=== PATIENT | male | born 1930 | race Caucasian/White ===

== ENCOUNTER 2016-07-01 13:55 | Emergency (ER) | payer MEDICARE, BC ==
[~2016-07-01] VITALS: Ht 172.7 cm; Wt 68.0 kg
[~2016-07-01 13:55] MED LIST: ACET325S8 PO; AMIO200 PO; ASPI81TA82 PO; ATOR10TA PO; CARV12.5 PO; PROT40TA PO; SUCR1TAB PO; SUPETAB30 PO; TEMA7.5 PO
[2016-07-01 14:09] VITALS: BP 150/74; PULSE 65; RESP 16; TEMP 97.2; O2SAT 99
[2016-07-01] MEDS ORDERED: CARV12.52 PO (14:21)
[2016-07-01] MEDS ORDERED: FURO1TAB60 PO (14:21)
[2016-07-01] MEDS ORDERED: ALLO100T PO (14:21)
[2016-07-01] MEDS ORDERED: PANT40TA3 PO (14:21)
[2016-07-01] MEDS ORDERED: CARA1TAB6 PO (14:21)
[2016-07-01] MEDS ORDERED: CALC0.25 PO (14:21)
[2016-07-01] MEDS ORDERED: AMLO10TA2 PO (14:21)
[2016-07-01] MEDS ORDERED: RENATAB6 PO (14:21)
[2016-07-01] MEDS ORDERED: ATOR10TA15 PO (14:21)
[2016-07-01] MEDS ORDERED: ASPI1TAB69 PO (14:21)
[2016-07-01 14:22] VITALS: BP 148/71; PULSE 71; RESP 16; O2SAT 98
[2016-07-01] MEDS ORDERED: SODIUM CHLOR 0.9% 250 ML INJ 250 ML IV ONE (15:00)
[2016-07-01 15:12] LABS: AUTOMATED NEUTROPHIL # 7.4 TH/MM3 (1.8-7.7); BASOPHIL # 0.1 TH/MM3 (0-0.2); BASOPHIL % 0.6 % (0.0-2.0); EOSINOPHIL # 0.8 TH/MM3 (0-0.4); EOSINOPHIL % 6.3 % (0.0-4.0); HEMATOCRIT 32.9 % (39.0-51.0); HEMO FLAGS DIFF FINAL; LYMPH % 22.6 % (9.0-44.0); LYMPHOCYTE # 2.7 TH/MM3 (1.0-4.8); MEAN CELL VOLUME 90.2 FL (80.0-100.0); MEAN CORPUSCULAR HEMOGLOBIN 29.9 PG (27.0-34.0); MEAN CORPUSCULAR HGB CONC 33.1 % (32.0-36.0); NEUT % 60.5 % (16.0-70.0); PLATELET COUNT 192 TH/MM3 (150-450); RED BLOOD COUNT 3.65 MIL/MM3 (4.50-5.90); RED CELL DISTRIBUTION WIDTH 14.8 % (11.6-17.2); WHITE BLOOD COUNT 12.2 TH/MM3 (4.0-11.0)
[2016-07-01 15:26] LABS: ANION GAP 11 MEQ/L (5-15); AST (GOT) 19 U/L (15-37); BICARBONATE 21.8 MEQ/L (21.0-32.0); BLOOD UREA NITROGEN 74 MG/DL (7-18); CHLORIDE 109 MEQ/L (98-107); GLOMERULAR FILTRATION RATE 8 ML/MIN (>89); POTASSIUM 3.6 MEQ/L (3.5-5.1); SODIUM (NA) 142 MEQ/L (136-145)
[2016-07-01 15:30] LABS: ALKALINE PHOSPHATASE 114 U/L (45-117); ALT (GPT) 23 U/L (12-78); TOTAL BILIRUBIN ADULT 0.4 MG/DL (0.2-1.0)
--- NOTE | 2016-07-01 15:37 | PD ---
HPI Chief Complaint: Syncope/Near-Syncope Time Seen by Provider: 14:10 Travel History International Travel<30 days: No Contact w/Intl Traveler<30days: No Traveled to known affect area: No History of Present Illness HPI Is an 86-year-old man with a history of end-stage renal disease, on peritoneal dialysis, and CAD, presents to the emergency department after he passed out. He states that he did his normal dialysis this morning. The machine cut him off a little bit early and so he manually extracted couple 100 mL's more fluid. He states he often gets a little bit lightheaded for seen the morning after finishing his dialysis. He went to breakfast and then really drink much and then was standing in line at [employer] for 30 minutes or so when he got lightheaded. He states "I knew I was in trouble". Try to lower himself to the ground but then appeared to pass out. States he feels completely back to normal now. He otherwise has been feeling generally well and healthy. History Past Medical History Narrative Medical End-stage renal disease, on PD CAD, history of CABG Hypertension Gout Tetanus Vaccination: Unknown Social History Alcohol Use: No Tobacco Use: No Allergies-Medications (Allergen,Severity, Reaction): Coded Allergies: No Known Allergies (Unverified , 08/25/14) Reported Meds & Prescriptions Reported Meds & Active Scripts Active Reported Aspirin 81 Mg Tabdr 81 Mg PO DAILY Carafate (Sucralfate) 1 Gm Tab 1 Gm PO TID On empty stomach [facility] (B-Complex W/ C & Folic Acid) 1 Tab 1 Tab PO DAILY Pantoprazole (Pantoprazole Sodium) 40 Mg Tab 40 Mg PO DAILY Lasix (Furosemide) 40 Mg Tab 40 Mg PO DAILY Carvedilol 12.5 Mg Tab 25 Mg PO BID Calcitriol 0.25 Mcg Cap 0.25 Mcg PO BID Atorvastatin (Atorvastatin Calcium) 10 Mg Tab 10 Mg PO HS Amlodipine (Amlodipine Besylate) 10 Mg Tab 10 Mg PO DAILY Allopurinol 100 Mg Tab 100 Mg PO DAILY Review of Systems Except as stated in HPI: all other systems reviewed are Neg Physical Exam Narrative GENERAL: Well-appearing 86-year-old man, no acute distress. SKIN: Focused skin assessment warm/dry. HEAD: Atraumatic. Normocephalic. EYES: Pupils equal and round. No scleral icterus. No injection or drainage. ENT: No nasal bleeding or discharge. Mucous membranes pink and moist. NECK: Trachea midline. No JVD. CARDIOVASCULAR: Regular rate and rhythm. No murmur appreciated. RESPIRATORY: No accessory muscle use. Clear to auscultation. Breath sounds equal bilaterally. GASTROINTESTINAL: Abdomen soft, non-tender, nondistended. Hepatic and splenic margins not palpable. PD catheter is in the lower midline. MUSCULOSKELETAL: No obvious deformities. No clubbing. No cyanosis. No edema. NEUROLOGICAL: Awake and alert. No obvious cranial nerve deficits. Motor grossly within normal limits. Normal speech. PSYCHIATRIC: Appropriate mood and affect; insight and judgment normal. Data Data Last Documented VS Vital Signs Date Time Temp Pulse Resp B/P Pulse Ox O2 Delivery O2 Flow Rate FiO2 07/01/16 14:22 71 16 148/71 98 07/01/16 14:09 97.2 Orders Electrocardiogram (07/01/16 14:35) Complete Blood Count With Diff (07/01/16 14:35) Comprehensive Metabolic Panel (07/01/16 14:35) Iv Access Insert/Monitor (07/01/16 14:35) Sodium Chlor 0.9% 250 Ml Inj (Ns 250 Ml (07/01/16 15:00) Labs Laboratory Tests Test 07/01/16 14:40 White Blood Count 12.2 TH/MM3 Red Blood Count 3.65 MIL/MM3 Hemoglobin 10.9 GM/DL Hematocrit 32.9 % Mean Corpuscular Volume 90.2 FL Mean Corpuscular Hemoglobin 29.9 PG Mean Corpuscular Hemoglobin 33.1 % Concent Red Cell Distribution Width 14.8 % Platelet Count 192 TH/MM3 Mean Platelet Volume 9.9 FL Neutrophils (%) (Auto) 60.5 % Lymphocytes (%) (Auto) 22.6 % Monocytes (%) (Auto) 10.0 % Eosinophils (%) (Auto) 6.3 % Basophils (%) (Auto) 0.6 % Neutrophils # (Auto) 7.4 TH/MM3 Lymphocytes # (Auto) 2.7 TH/MM3 Monocytes # (Auto) 1.2 TH/MM3 Eosinophils # (Auto) 0.8 TH/MM3 Basophils # (Auto) 0.1 TH/MM3 CBC Comment DIFF FINAL Differential Comment Sodium Level 142 MEQ/L Potassium Level 3.6 MEQ/L Chloride Level 109 MEQ/L Carbon Dioxide Level 21.8 MEQ/L Anion Gap 11 MEQ/L Blood Urea Nitrogen 74 MG/DL Creatinine 6.92 MG/DL Estimat Glomerular Filtration 8 ML/MIN Rate Random Glucose 128 MG/DL Calcium Level 8.3 MG/DL Total Bilirubin 0.4 MG/DL Aspartate Amino Transf 19 U/L (AST/SGOT) Alanine Aminotransferase 23 U/L (ALT/SGPT) Alkaline Phosphatase 114 U/L Total Protein 6.4 GM/DL Albumin 3.1 GM/DL [facility] Medical Decision Making Medical Screen Exam Complete: Yes Emergency Medical Condition: Yes Interpretation(s) My review of EKG: Leftward axis, QRS duration 148, likely right bundle branch block, compared to previous EKG from May 2014, previously seen lateral T wave inversions in the precordial leads are more resolved, lateral T wave inversions in the limb leads remain unchanged. No other significant change. LABS: CBC remarkable for mild leukocytosis, mild anemia. Otherwise unremarkable Differential Diagnosis Volume depletion, occult infection, anemia, electrolyte abnormality arrhythmia, ACS, other Narrative Course Medical decision making This 86-year-old male presents emergency Department complaining of syncope in the setting of prolonged standing and possible Lyme depletion. He looks well now. Is given a small bolus of 250 mL some IV fluid back. He's feeling completely well. He had no concerning symptoms such as chest pain trouble breathing. We'll recommend outpatient follow-up. Diagnosis Primary Impression: Syncope and collapse Additional Instructions: Drink plenty of fluids over the next couple days to stay well-hydrated. Continue your regular medications. Continue peritoneal dialysis. Follow Up with your primary doctor on Saturday. Med/Other Pt SpecificInfo: No Change to Meds Disposition: 01 DISCHARGE HOME Condition: Stable Durga Cooper MD Jul 01, 2016 15:37
[2016-07-01 16:25] VITALS: BP 133/66
--- NOTE | 2016-07-02 10:42 | EKG ---
Date Performed: 07/01/2016 Time Performed: 14:44:28 PTAGE: 86 years EKG: Sinus rhythm WITH FIRST DEGREE AV BLOCK INTRAVENTRICULAR CONDUCTION DELAY ABNORMAL ECG PREVIOUS TRACING : 06/12/2014 14.19 DOCTOR: Ceasar Perry Interpretating Date/Time 07/02/2016 10:39:49
== END 2016-07-01 16:26 | disposition home or self-care (01) ==
LOC: NEPC 13:55
DX: R55 Syncope and collapse (principal); N18.6 End stage renal disease; Z99.2 Dependence on renal dialysis; I25.10 Atherosclerotic heart disease of native coronary artery without angina pectoris; I12.0 Hypertensive chronic kidney disease with stage 5 chronic kidney disease or end stage renal disease; Z95.1 Presence of aortocoronary bypass graft; I44.0 Atrioventricular block, first degree; R94.31 Abnormal electrocardiogram [ECG] [EKG]
CPT/HCPCS: 80053; 85025; 93005; 96360; 99284; J7050